=== PATIENT | female | born 1970 | race African-American/Black ===

== ENCOUNTER 2016-03-04 16:26 | Emergency (ER) | payer SELFPAY ==
[~2016-03-04] VITALS: Ht 157.5 cm; Wt 68.0 kg
[~2016-03-04 16:26] MED LIST: IBUP800T23 PO
[2016-03-04 16:31] VITALS: BP 154/86; PULSE 80; RESP 12; TEMP 98.2; O2SAT 98
[2016-03-04] MEDS ORDERED: BACL10TA PO (19:25)
[2016-03-04] MEDS ORDERED: IBUP800T23 PO (19:25)
--- NOTE | 2016-03-04 19:29 | PD ---
HPI Chief Complaint: Musculoskeletal Complaint Time Seen by Provider: 19:20 Travel History International Travel<30 days: No Contact w/Intl Traveler<30days: No Traveled to known affect area: No History of Present Illness HPI This is a 45-year-old female who presents for evaluation of left arm pain. Symptoms started several months ago. She describes it as a burning sensation all across her left arm and hand with associated tingling sensation intermittently in the left hand. She denies any injuries. She denies any neck pain, chest pain, shortness of breath, abdominal pain, fevers or chills. She denies any repetitive typing or lifting activities at work. She says that the symptoms involve all 5 fingers of the left hand. She has not yet follow-up with her primary care physician regarding these symptoms despite the fact that this is been ongoing for several months. She has no other complaints at this time. [facility] Past Medical History Medical History: Denies Significant Hx Diminished Hearing: No Immunizations Current: Yes Tetanus Vaccination: < 5 Years Influenza Vaccination: No ?: Not Tubal Ligation: Yes Social History Alcohol Use: No Tobacco Use: No Substance Use: No Allergies-Medications (Allergen,Severity, Reaction): Coded Allergies: No Known Allergies (Verified , 03/04/16) Reported Meds & Prescriptions Reported Meds & Active Scripts Active Ibuprofen 800 Mg Tab 800 Mg PO Q6HR PRN Baclofen 10 Mg Tab 10 Mg PO TID PRN 10 Days Review of Systems Except as stated in HPI: all other systems reviewed are Neg Physical Exam Narrative GENERAL: Well-developed well-nourished female in no acute distress SKIN: Warm and dry. No rash no bruising or soft tissue swelling HEAD: Atraumatic. Normocephalic. EYES: Pupils equal and round. No scleral icterus. No injection or drainage. ENT: No nasal bleeding or discharge. Mucous membranes pink and moist. CARDIOVASCULAR: Regular rate and rhythm. No murmur appreciated. RESPIRATORY: No accessory muscle use. Clear to auscultation. Breath sounds equal bilaterally. GASTROINTESTINAL: Abdomen soft, non-tender, nondistended. Hepatic and splenic margins not palpable. MUSCULOSKELETAL: No obvious deformities. No edema. There is tenderness to palpation along the left glenohumeral joint. The patient maintains full range of motion of the upper extremities. She has normal commercial leasing agent strength, 5 out of 5 muscle strength and arm flexion and extension. 2+ radial pulse. Capillary refill less than 2 seconds all digits left hand. Normal sensation to touch. NEUROLOGICAL: Awake and alert. No obvious cranial nerve deficits. Motor grossly within normal limits. Normal speech. Data Data Last Documented VS Vital Signs Date Time Temp Pulse Resp B/P Pulse Ox O2 Delivery O2 Flow Rate FiO2 03/04/16 16:31 98.2 80 12 154/86 98 Room Air Orders Ketorolac Inj (Toradol Inj) (03/04/16 19:30) Orphenadrine Inj (Norflex Inj) (03/04/16 19:30) [facility] Medical Decision Making Medical Screen Exam Complete: Yes Emergency Medical Condition: Yes Medical Record Reviewed: Yes Differential Diagnosis Peripheral neuropathy, cervical radiculopathy, carpal tunnel syndrome, thoracic outlet syndrome, intermittent claudication, TIA, ACS Narrative Course 45-year-old female with several months of left arm burning sensation and paresthesias. Physical examination is unremarkable. I don't suspect TIA or ACS as the etiology for this patient's several months of left arm pain. Examination reveals no evidence of DVT or arterial occlusion. Her symptoms are nonspecific in that they involve all 5 fingers of the left hand as opposed to a specific peripheral nerve entrapment. The plan at this time is to treat the patient symptomatically and have her follow up with primary care physician if symptoms persist. Diagnosis Primary Impression: Left arm pain Additional Instructions: Medication as prescribed. Follow-up with primary care physician closely. Return for any emergent medical conditions. Med/Other Pt SpecificInfo: Prescription(s) given Scripts Ibuprofen 800 Mg [id number] Mg PO Q6HR PRN (PAIN) #40 TAB Ref 0 Prov:Lupe Moran MD 03/04/16 Baclofen 10 Mg Tab10 Mg PO TID PRN (MUSCLE SPASM) 10 Days Ref 0 Prov:Lupe Moran MD 03/04/16 Disposition: 01 DISCHARGE HOME Condition: Stable Abel Martinez Mar 04, 2016 19:29
[2016-03-04] MEDS ORDERED: ORPHENADRINE INJ 60 MG/2 ML AMP IM ONE (19:30)
[2016-03-04] MEDS ORDERED: KETOROLAC TROMETHAMINE 60 MG/2 ML (IM) VIAL IM ONE (19:30)
== END 2016-03-04 21:05 | disposition home or self-care (01) ==
LOC: NEPB 16:26
DX: M79.602 Pain in left arm (principal); R20.2 Paresthesia of skin
CPT/HCPCS: 96372; 99283; J1885; J2360

== ENCOUNTER 2017-03-16 16:12 | Emergency (ER) | payer OTHER ==
[~2017-03-16] VITALS: Ht 157.5 cm; Wt 68.0 kg
[~2017-03-16 16:12] MED LIST changes: +BACL10TA PO; +IBUP1TAB7 PO; -IBUP800T23 PO
[2017-03-16 16:13] VITALS: BP 115/74; PULSE 93; RESP 18; TEMP 99.6; O2SAT 100
[2017-03-16] MEDS ORDERED: OSEL75 PO (18:17)
[2017-03-16] MEDS ORDERED: BENZ100 PO (18:17)
--- NOTE | 2017-03-16 18:20 | PD ---
HPI Chief Complaint: Cold / Flu Symptoms Time Seen by Provider: 17:37 Travel History International Travel<30 days: No Contact w/Intl Traveler<30days: No Traveled to known affect area: No History of Present Illness HPI 46-year-old female that presents to the ED for evaluation of cold like symptoms. Per patient she's had this for the past 2 days. She states that symptoms were more severe today. Having bodyaches, congestion and cough. Per patient her was recently diagnosed with influenza. She is concerned she has the same. She's been in close contact with him. She isn't sure what type of influenza but she does note that he was diagnosed with influenza. She denies any chest pain or shortness of breath other than with cough. No history of asthma or smoking. No allergies to medication. No other medical issues. No urinary or bowel movement issues. PFSH Past Medical History Diminished Hearing: No Immunizations Current: Yes ?: Not Tubal Ligation: Yes Social History Alcohol Use: No Tobacco Use: No Substance Use: No Allergies-Medications (Allergen,Severity, Reaction): Coded Allergies: No Known Allergies (Verified , 03/04/16) Reported Meds & Prescriptions Reported Meds & Active Scripts Active Tessalon Perles (Benzonatate) 100 Mg Cap 100 Mg PO TID PRN Tamiflu (Oseltamivir Phosphate) 75 Mg Cap 75 Mg PO BID 5 Days Review of Systems Except as stated in HPI: all other systems reviewed are Neg Physical Exam Narrative GENERAL: Well-nourished, well-developed patient in no apparent distress. SKIN: Warm and dry. HEAD: Atraumatic. Normocephalic. EYES: Pupils equal and round reactive to light and accommodation. No scleral icterus. No injection or drainage. ENT: No nasal bleeding or discharge. Mucous membranes pink and moist. TMs are clear with no sign of infection or perforation. No mastoid tenderness. Ear canals are intact bilaterally. No lymphadenopathy. Nostril mucosa is red and moist with clear mucus noted. No sinus tenderness to palpation noted. Tonsils are not enlarged or swollen. No ulvua Deviation. Tongue is midline. NECK: Trachea midline. No JVD. No meningeal signs noted CARDIOVASCULAR: Regular rate and rhythm. RESPIRATORY: No accessory muscle use. Clear to auscultation. Breath sounds equal bilaterally. GASTROINTESTINAL: Abdomen soft, non-tender, nondistended. Hepatic and splenic margins not palpable. MUSCULOSKELETAL: Extremities without clubbing, cyanosis, or edema. No obvious deformities. NEUROLOGICAL: Awake and alert. No obvious cranial nerve deficits. Motor grossly within normal limits. Five out of 5 muscle strength in the arms and legs. Normal speech. PSYCHIATRIC: Appropriate mood and affect; insight and judgment normal. Data Data Last Documented VS Vital Signs Date Time Temp Pulse Resp B/P (MAP) Pulse Ox O2 Delivery O2 Flow Rate FiO2 03/16/17 16:13 99.6 93 18 115/74 (88) 100 Room Air Orders Orders Influenzae A/B Antigen (03/16/17 17:44) Ed Discharge Order (03/16/17 18:16) MDM Medical Decision Making Medical Screen Exam Complete: Yes Emergency Medical Condition: Yes Medical Record Reviewed: Yes Differential Diagnosis Influenza versus viral illness versus URI Narrative Course 46-year-old female that presents to the ED for elevation of cold like symptoms and recent exposure to influenza. Patient was properly examined and was found to have signs and symptoms consistent appears to be likely influenza. Patient' s symptoms just started less than 24 hours that she will get much benefit from Tamiflu. At this time I recommend treating for this as she got exposed to flu from . Patient was given Tessalon Perles for cough. Given instructions to take [id number] remedies as needed. Close follow with PCP. Note for work. See ED worsening symptoms. Diagnosis Primary Impression: Influenza Patient Instructions: General Instructions Departure Forms: Tests/Procedures, Work Release Enter return to work date: Mar 19, 2017 Additional Instructions: Motrin and Tylenol for pain and fever. You can use [id number] antihistamine as well as well as Mucinex as needed for runny nose and congestion. Cough drops for cough as needed. Drink plenty of fluids. Follow-up with PCP. See ED for worsening symptoms. Med/Other Pt SpecificInfo: Prescription(s) given Scripts Benzonatate (Tessalon Perles) 100 Mg Cap 100 MG PO TID Y for COUGH, #20 CAP 0 Refills Prov: Hakeem Ortiz MD 03/16/17 Oseltamivir (Tamiflu) 75 Mg Cap 75 MG PO BID for Mgmt Viral Infection for 5 Days, #10 CAP 0 Refills Prov: Hakeem Ortiz MD 03/16/17 Disposition: 01 DISCHARGE HOME Condition: Stable Yakov Viramontes Mar 16, 2017 18:20
== END 2017-03-16 18:37 | disposition home or self-care (01) ==
LOC: NEPK 16:12
DX: J11.1 Influenza due to unidentified influenza virus with other respiratory manifestations (principal)
CPT/HCPCS: 87804; 99283